=== PATIENT | male | born 1955 | race Caucasian/White ===

== ENCOUNTER 2018-06-06 06:20 | Day surgery (SDC) | payer OTHER ==
--- NOTE | 2018-06-05 11:43 | EKG ---
Test Date: 2018-06-05 Test Time: 11:23:32 Marketing Forecaster: MIRNA MEASUREMENT RESULTS: Intervals: Rate: 94 ME: 156 QRSD: 72 QT: 352 QTc: 440 [place]: P: 58 ME: 156 QRS: -29 T: 34 INTERPRETIVE STATEMENTS: Sinus rhythm with premature atrial complexes with aberrant conduction Nonspecific T wave abnormality Abnormal ECG No previous ECG available for comparison Electronically Signed On 06-05-18 11:42:44 CAKE TESTER by Andi Gregory
--- NOTE | 2018-06-05 11:54 | RAD REPORT ---
EXAM DESCRIPTION: Meagan Suazo And Fannie (2 Views)06/05/2018 11:34 am CLINICAL HISTORY: Preop for removal of left humeral bone lesion COMPARISON: None FINDINGS: A couple of tiny nodular opacities are seen within the lungs. The heart is normal size IMPRESSION: Couple of tiny nodular opacities within the lungs probably either represent calcified g ranulomas are vessel seen on-end. If the patient has prior chest x-rays a [facility] If unavailable, follow-up chest x-ray in 1 month would be recommended for re-evaluation
[2018-06-05 12:16] LABS: Absolute Lymphocytes (CBC) 3.2 K/uL (0.7-4.9); Absolute Monocytes 1.1 K/uL (0.1-1.3); Absolute Neutrophil 11.1 K/uL (1.8-8.0); Basophils % 0.8 % (0-1.3); Eosinophils % 1.7 % (0-4.4); Hematocrit 46.5 % (39.6-49.0); Lymphocytes % 20.2 % (15.3-44.8); MCH 31.6 pg (27.0-35.0); MCV 90.8 fL (80-100); MPV 10.2 fL (7.6-11.3); Monocytes % 7.1 % (3.3-12.3); RBC Red Blood Cell Count 5.12 M/uL (4.33-5.43)
[2018-06-05 12:31] LABS: Potassium 3.9 mmol/L (3.5-5.1)
[2018-06-06] MEDS ORDERED: NA CHLORIDE 0.9% 1,000 ML ONE (07:01)
[2018-06-06] MEDS ORDERED: CEFAZOLIN/SWI 1gm 1 GM/10 ML SYR ONE (07:02)
[2018-06-06] MEDS ORDERED: MIDAZOLAM HCL 2 MG/2 ML INJ ONE (07:23)
[2018-06-06] MEDS ORDERED: FENTANYL CITR 100 MCG/2 ML ONE (07:23)
[2018-06-06] MEDS ORDERED: PROPOFOL 200 MG/20 ML VIAL IV ONE (07:23)
[2018-06-06] MEDS ORDERED: LIDOCAINE 1% MPF 5 ML VIAL ONE (07:23)
[2018-06-06] MEDS ORDERED: KETOROLAC 30 MG/ML INJ ONE (08:05)
--- NOTE | 2018-06-06 08:25 | P.BOP ---
Preoperative diagnosis: infected left arm subcutaneous mass with abscess Postoperative diagnosis: same Primary procedure: 1. Excision of 8 x 6.5 infected left arm subcutaneous mass Secondary procedure: 2. Incision and drainage of left arm abscess Estimated blood loss: <10cc Specimen: mass, culture Findings: mass and abscess deep down to fascia of muscle Anesthesia: MAC Complications: None Drain(s): Other Transferred to: Recovery Room Condition: Good
--- NOTE | 2018-06-06 21:34 | OP ---
Date of Procedure: 06/06/2018 Surgeon: Thomas Mayorga MD Preoperative Diagnosis: Infected left arm subcutaneous mass with abscess. Postoperative Diagnosis: Infected left arm subcutaneous mass with abscess. Procedures: Excisional biopsy of infected left arm subcutaneous mass 8 x 6.5 cm with incision and dr pa of left arm abscess. Specimen: Mass and culture. Findings: The patient have a subcutaneous mass with a deep abscess that goes into the area down to t he fascia of the muscle, some of the fascia of the muscle have to come with the specimens since it is associated with the infection. Anesthesia: MAC plus local anesthetic. Indications: This is a case of a 62-year-old patient, who comes to us with 2 masses, initially was s een electively, but due to medical clearance, this surgery has not been able to be done yet, but rece ntly in the last 48 hours, he developed an infection of one of the masses with purulent discharge. 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 The patient understood the risk of this procedure which include, but not l imited to infection, bleeding, damage to adjacent structures, anesthesia complication, [place] and even de ath. He also understands this may not relieve any symptoms. He might need more than one surgical in tervention. He understands he will require wound care. He understands the limitations on his cardia c workup and he still want to proceed also today with the procedure. The area of concern was marked by me and the patient in the holding room. Description Of Procedure: The patient was brought to the operating room, placed in supine position. Anesthesia was done without complication. Left arm was prepped and draped in the usual sterile fash ion. A time-out was called and a wedge incision was made in the skin to include the mass. The mass lied deep in the subcutaneous tissue and then deep to that is when you have this complex abscess. Th is abscess involved the fascia, so have to be debrided with the specimen. Muscle seems to be intact. The area was profusely irrigated. The loculations were explored and opened. Cultures were obtaine d. Devitalized tissue was removed and then the area was packed with wet-to-dry dressing after comple te hemostasis and irrigation. The patient tolerated the procedure well. Local anesthetic was used. The patient was sent to recovery room in stable condition. ARI Voice ID: [id number] Report ID: [id number]
== END 2018-06-06 10:10 | disposition home or self-care (01) ==
LOC: OR 06:20
PROVIDERS: ATTEND Surgery
PROC: 0J9F0ZZ Drainage of Left Upper Arm Subcutaneous Tissue and Fascia, Open Approach (ICD-10-PCS; 2018-06-06)
PROC: 0WB60ZZ Excision of Neck, Open Approach (ICD-10-PCS; principal; 2018-06-06 07:30)
DX: L72.0 Epidermal cyst (principal); L02.414 Cutaneous abscess of left upper limb; E11.9 Type 2 diabetes mellitus without complications; I10 Essential (primary) hypertension; Z72.0 Tobacco use; Z80.8 Family history of malignant neoplasm of other organs or systems; Z83.3 Family history of diabetes mellitus; Z82.49 Family history of ischemic heart disease and other diseases of the circulatory system
CPT/HCPCS: 36415; 71046; 80048; 82962; 85025; 87070; 87075; 87205; 88304; 93005; J0690; J2250; J2704; J3010; J7030

== ENCOUNTER 2020-05-27 12:18 | Day surgery (SDC) | payer OTHER ==
[2020-05-26 14:21] LABS: Absolute Lymphocytes (CBC) 3.2 K/uL (0.7-4.9); Basophils % 0.6 % (0-1.3); Hematocrit 50.9 % (39.6-49.0); Lymphocytes % 23.7 % (15.3-44.8); MPV 8.7 fL (7.6-11.3); RBC Red Blood Cell Count 5.67 M/uL (4.33-5.43)
--- NOTE | 2020-05-26 14:31 | RAD REPORT ---
EXAM DESCRIPTION: RAD - Chest Pa And Lat (2 Views) - 05/26/2020 2:09 pm CLINICAL HISTORY: preop, patient pending soft tissue mass removal from the back COMPARISON: Two view chest May 2018 TECHNIQUE: Frontal and lateral views of the chest were obtained. FINDINGS: The lungs are clear of infiltrate or mass. No failure or volume overload. Prominent inters titial pattern matches comparison. Heart size is normal and central vasculature is within normal li mits. No pleural effusion or pneumothorax seen. No acute bony finding noted. No aortic abnormality . IMPRESSION: No acute cardiopulmonary process. Chronic interstitial lung pattern matches prior study.
[2020-05-26 14:34] LABS: Potassium 4.5 mmol/L (3.5-5.1)
[2020-05-27] MEDS ORDERED: NA CHLORIDE 0.9% 1,000 ML ONE (12:59)
[2020-05-27] MEDS ORDERED: CEFAZOLIN/SWI 1gm 1 GM/10 ML SYR ONE (13:00)
[2020-05-27] MEDS ORDERED: MIDAZOLAM HCL 2 MG/2 ML INJ ONE (14:13)
[2020-05-27] MEDS ORDERED: FENTANYL CITR 100 MCG/2 ML ONE (14:13)
[2020-05-27] MEDS ORDERED: LIDOCAINE 1% MPF 5 ML VIAL ONE (14:13)
[2020-05-27] MEDS ORDERED: propofoL 200 MG/20 ML VIAL IV ONE (14:13)
[2020-05-27] MEDS ORDERED: KETOROLAC 30 MG/ML INJ ONE (14:31)
--- NOTE | 2020-05-27 14:33 | P.BOP ---
Preoperative diagnosis: Infected subQ mass 4.5 x 4 cm with abscess Postoperative diagnosis: same Primary procedure: Excisional biopsy of infected subQ mass 4.5 x 4 cm with abscess Estimated blood loss: <10cc Specimen: mass, cult Findings: mass, abscess Anesthesia: General Complications: None Drain(s): Other Transferred to: Recovery Room Condition: Good
[2020-05-27] MEDS ORDERED: ONDANSETRON 4 MG/2 ML VIAL ONE (14:34)
[2020-05-27 15:31] VITALS: BP 146/68; TEMP 97; O2SAT 98
--- NOTE | 2020-05-27 22:24 | OP ---
Date of Procedure: 05/27/2020 Surgeon: Thomas Mayorga MD Preoperative Diagnoses: Infected lower back subcutaneous mass, 4.5 x 4 cm, with cellulitis and absce ss. Postoperative Diagnoses: Infected lower back subcutaneous mass, 4.5 x 4 cm, with cellulitis and absc ess. Procedure: Excisional biopsy of infected subcutaneous mass, 4.5 x 4 cm, with abscess drainage on the lower back. Specimen: Mass, culture. Anesthesia: MAC plus local. Indications: This is the case of a male, who comes to us few hours ago with a cellulitis and abscess with infected mass in the lower back area. The patient was having tenderness, erythema, increased t emperature. The benefits, alternatives, and risks of excision of the mass with drainage of an absces s were fully explained, which include, but not limited to infection, bleeding, damage to adjacent str uctures, anesthesia complication, nonhealing wound, ND, and even . He also understands this may not relieve symptoms. He might need more than one surgical intervention. He understood also he may be receiving wound care. He has some blood thinners, so may have some more oozing of blood as the u sual and he might need more than one surgical change a day. He understood and signed a consent. The patient placed on antibiotics. Procedure In Detail: The patient go to the OR and placed in supine position. Anesthesia was done wi domout complication. The back area was prepped and draped in sterile fashion. A time-out was called. Local anesthesia was applied followed by an incision over the mass area. This left a large cavity present. Abscess was encountered at the deep area. It was irrigated and drained. Loculations were explored open. Area was irrigated and covered with wet-to-dry dressing. The patient tolerated the p rocedure well. The patient was sent to recovery in stable condition. Disposition: Home. Activity: As tolerated. No heavy lifting. Plan: Follow up in my office in 1 week. Call for appointment at [phone]. Wet-to-dry dressing, nor mal saline daily. EUGENE/AMY Voice ID: [id number] Report ID: [id number]
== END 2020-05-27 15:48 | disposition home or self-care (01) ==
LOC: OR 12:18
PROVIDERS: ATTEND Surgery
PROC: 0JB70ZZ Excision of Back Subcutaneous Tissue and Fascia, Open Approach (ICD-10-PCS; principal; 2020-05-27 14:00)
DX: L72.0 Epidermal cyst (principal); L08.9 Local infection of the skin and subcutaneous tissue, unspecified; L03.312 Cellulitis of back [any part except buttock and flank]; I10 Essential (primary) hypertension; E11.9 Type 2 diabetes mellitus without complications; E78.00 Pure hypercholesterolemia, unspecified; L02.212 Cutaneous abscess of back [any part, except buttock and flank]; Z20.828 Contact with and (suspected) exposure to other viral communicable diseases
CPT/HCPCS: 93005; 87070; 85025; 80048; 36415; 87205; 82947 ×2; 88304; 87075; 71046; 11406; U0002; J2704; J2250; J3010; J0690; J7030; J2405; 88305